=== PATIENT | female | born 1990 | race Caucasian/White ===

== ENCOUNTER 2017-01-29 17:26 | Emergency (ER) | payer OTHER ==
--- NOTE | 2017-01-29 17:56 | ED Physician Documentation ---
PD HPI UPPER EXT INJURY - Stated complaint Stated Complaint: L HAND INJ - Chief complaint Chief Complaint: Ext Problem - History obtained from History obtained from: Patient - History of Present Illness Location: Left Type of injury: Other (states hit her hand on a ceiling fan.) Where injury occurred: Home Timing - onset: How many hours ago (1) Timing - details: Abrupt onset Pain level max: 7 Pain level now: 5 Improved by: Rest, Ice Worsened by: Moving, Palpating Associated symptoms: Swelling. No: Weakness, Numbness, Tingling Contributing factors: No: Anticoagulated, Prior ortho surgery Recently seen: Not recently seen (states hit L hand on ceiling fan while putting on her jacket. pt is right handed) Review of Systems : denies: Now EGA Neurologic: denies: Focal weakness, Numbness PD PAST MEDICAL HISTORY - Past Medical History Past Medical History: Yes Neuro: Headache/migraine - Past Surgical History Past Surgical History: Yes General: Appendectomy - Present Medications Home Medications: Ambulatory Orders Medication Instructions Recorded Confirmed Topiramate [Topamax] 15 mg PO BID 01/29/17 01/29/17 - Allergies Allergies/Adverse Reactions: Allergies Allergy/AdvReac Type Severity Reaction Status Date / Time No Known Drug Allergies Allergy Verified 12/28/13 21:05 - Social History Does the pt smoke?: Yes Smoking Status: Current every day smoker Does the pt drink ETOH?: Yes Does the pt have substance abuse?: No - Immunizations Immunizations are current?: Yes PD ED PE NORMAL - Vitals Vital signs reviewed: Yes - General General: Alert and oriented X 3, No acute distress - Extremities Extremities: Other (L hand - mild TTP over the L 2nd MC distal aspect. mild swelling. NVI. FROM.) - Neuro Neuro: Alert and oriented X 3 - Psych Psych: Normal mood, Normal affect Results - Vitals Vitals: Vital Signs - 24 hr 01/29/17 01/29/17 17:31 18:24 Temperature 37.2 C 37.1 C Heart Rate 85 73 Respiratory 18 Rate Blood Pressure 119/77 114/70 O2 Saturation 100 Oxygen O2 Source Room air - Rads (name of study) L hand xray Radiology: Prelim report reviewed, EMP read contemporaneously, See rad report ( normal) PD MEDICAL DECISION MAKING - ED course Complexity details: reviewed results, re-evaluated patient, considered differential, d/w patient ED course: Patient is a 26-year-old female presents to the emergency department with left hand pain after accidentally hitting it on a ceiling fan. No acute findings on x-ray. Full range of motion. Neurovascularly intact. Placed in a Velcro splint for comfort. Will utilize Motrin and Tylenol as needed for pain at home. Patient is right-handed. Patient counseled regarding signs and symptoms for which I believe and urgent re-evaluation would be necessary. Patient with good understanding of and agreement to plan and is comfortable going home at this time This document was made in part using voice recognition software. While efforts are made to proofread this document, sound alike and grammatical errors may occur. Departure - Departure Disposition: 01 Home, Self Care Clinical Impression: Contusion, hand Qualifiers: Encounter type: initial encounter Laterality: left Qualified Code(s): S60.222A - Contusion of left hand, initial encounter Condition: Good Instructions: ED Contusion Hand Follow-Up: Medardo York MD [Primary Care Provider] - Within 1 week Comments: You can use motrin or tylenol as needed for pain. Return if you worsen. Your xrays are normal. Discharge Date/Time: 01/29/17 18:24
--- NOTE | 2017-01-29 18:04 | XRAY Preliminary Report ---
Exam: XR HAND 3 VIEW LT IMPRESSION: Normal hand radiography. [facility] SITE ID: [id number]
--- NOTE | 2017-01-29 18:06 | XRAY Report ---
EXAM: LEFT HAND RADIOGRAPHY EXAM DATE: 01/29/2017 05:36 PM. CLINICAL HISTORY: Injury. Caught hand in ceiling fan. COMPARISON: None. TECHNIQUE: 3 views. FINDINGS: Bones: Normal. No fractures or bone lesions. Joints: Normal. No subluxations. Soft Tissues: Normal. No soft tissue swelling. IMPRESSION: Normal hand radiography. [facility] Referring Provider Line: [phone] SITE ID: [id number]
[2017-01-29 18:24] VITALS: BP 114/70
== END 2017-01-29 18:24 | disposition home or self-care (01) ==
LOC: ED 17:26
DX: S60.222A Contusion of left hand, initial encounter (principal); W22.8XXA Striking against or struck by other objects, initial encounter; Y92.019 Unspecified place in single-family (private) house as the place of occurrence of the external cause; F17.200 Nicotine dependence, unspecified, uncomplicated
CPT/HCPCS: 99283

== ENCOUNTER 2017-04-09 15:08 | Emergency (ER) | payer OTHER ==
[2017-04-09] MEDS ORDERED: IBUPROFEN 400 MG TABLET PO STA (17:16)
[2017-04-09] MEDS ORDERED: BENZONATATE 100 MG CAPSULE PO STA (17:16)
[2017-04-09] MEDS ORDERED: guaiFENesin/DEXTROMETHORPHAN 10 ML UDC PO STA (17:16)
[2017-04-09 17:27] VITALS: BP 114/72
--- NOTE | 2017-04-09 17:49 | ED Physician Documentation ---
History of Present Illness - Stated complaint Stated Complaint: SORE THROAT,NECK PAIN - Chief complaint Chief Complaint: Resp - Additonal information Additional information: hx from pt 27 f flu like sx - fever body aches cough sore throat diarrhea no sig pmhx and not Review of Systems Constitutional: reports: Fever, Chills, Myalgias Throat: reports: Sore throat Respiratory: reports: Cough GI: reports: Diarrhea. denies: Abdominal Pain : denies: Now EGA (denies) Endocrine: denies: Easy bruising / bleeding Immunocompromised: denies: Immunocompromised PD PAST MEDICAL HISTORY - Past Medical History Past Medical History: Yes Neuro: Headache/migraine - Past Surgical History Past Surgical History: Yes General: Appendectomy - Present Medications Home Medications: Ambulatory Orders Medication Instructions Recorded Confirmed Topiramate [Topamax] 15 mg PO BID 01/29/17 01/29/17 Benzonatate [Tessalon] 100 mg PO TID PRN #20 capsule 04/09/17 Fluticasone [Flonase] 1 sprays EDELMIRA BID PRN #1 bottle 04/09/17 Loperamide [Imodium] 2 mg PO ONCE PRN #10 capsule 04/09/17 guaiFENesin/DEXTROMETHORPHAN 10 ml PO Q6H PRN #120 ml 04/09/17 [Robitussin Dm] - Allergies Allergies/Adverse Reactions: Allergies Allergy/AdvReac Type Severity Reaction Status Date / Time No Known Drug Allergies Allergy Verified 12/28/13 21:05 - Social History Does the pt smoke?: No Smoking Status: Never smoker Does the pt drink ETOH?: Yes Does the pt have substance abuse?: No - Immunizations Immunizations are current?: Yes PD ED PE NORMAL - Vitals Vital signs reviewed: Yes - HEENT HEENT: Atraumatic, Moist mucous membranes. No: Pharynx benign (+ erythema no exudate) - Cardiac Cardiac: RRR - Respiratory Respiratory: No respiratory distress, Clear bilaterally - Abdomen Abdomen: Soft, Non tender - Derm Derm: Normal color - Neuro Neuro: Alert and oriented X 3 Results - Vitals Vitals: Vital Signs - 24 hr 04/09/17 04/09/17 15:17 17:26 Temperature 37.2 C 37.2 C Heart Rate 96 73 Respiratory 18 18 Rate Blood Pressure 120/72 114/72 O2 Saturation 99 99 Oxygen O2 Source Room air - Labs Labs: Laboratory Tests 04/09/17 15:55 Group A Strep Rapid Negative PD MEDICAL DECISION MAKING - ED course ED course: strep neg sx c/w influenza discussed side effects vs benefits of tamiflu with pt and she declines will rx symptomatic meds Departure - Departure Disposition: Home, Self Care Clinical Impression: Influenza Condition: Good Instructions: ED Flu Follow-Up: Medardo York MD [Primary Care Provider] - Prescriptions: Benzonatate [Tessalon] 100 mg PO TID PRN #20 capsule PRN Reason: to ease cough Fluticasone [Flonase] 1 sprays EDELMIRA BID PRN #1 bottle PRN Reason: congestion guaiFENesin/DEXTROMETHORPHAN [Robitussin Dm] 10 ml PO Q6H PRN #120 ml PRN Reason: Cough Loperamide [Imodium] 2 mg PO ONCE PRN #10 capsule PRN Reason: Diarrhea Comments: The rapid strep test was negative Your symptoms are consistent with the flu We discussed tamiflu but decided the side effects were not worth the limited benefit But I did prescribe medication to he ease your symptoms and a note for work You can also take motrin and tylenol as needed for fever and body aches Forms: Activity restrictions
== END 2017-04-09 18:03 | disposition home or self-care (01) ==
LOC: ED 15:08
DX: J11.1 Influenza due to unidentified influenza virus with other respiratory manifestations (principal)
CPT/HCPCS: 87070; 87430; 99283; A9270

== ENCOUNTER 2017-05-22 07:47 | Emergency (ER) | payer OTHER ==
[2017-05-22 07:52] VITALS: BP 121/88
--- NOTE | 2017-05-22 08:13 | ED Physician Documentation ---
History of Present Illness - Stated complaint Stated Complaint: N/V/D - Chief complaint Chief Complaint: Abd Pain - Additonal information Additional information: hx from pt 27 f [place] to ER with 2 hr of NVD bit of a cough after vomiting knee sore from kneeling to vomit no bad food no travel no contacts with same Review of Systems Constitutional: denies: Fever GI: reports: Nausea, Vomiting, Diarrhea : denies: Now EGA (denies) Endocrine: denies: Easy bruising / bleeding Immunocompromised: denies: Immunocompromised PD PAST MEDICAL HISTORY - Past Medical History Past Medical History: Yes Neuro: Headache/migraine - Past Surgical History Past Surgical History: Yes General: Appendectomy - Present Medications Home Medications: Ambulatory Orders Medication Instructions Recorded Confirmed Topiramate [Topamax] 15 mg PO BID 01/29/17 01/29/17 Loperamide [Imodium] 2 mg PO ONCE PRN #10 capsule 05/22/17 Methocarbamol 0 mg PO BID 05/22/17 05/22/17 Ondansetron Odt [Zofran] 4 mg TL Q6H PRN #10 tablet 05/22/17 - Allergies Allergies/Adverse Reactions: Allergies Allergy/AdvReac Type Severity Reaction Status Date / Time No Known Drug Allergies Allergy Verified 05/22/17 07:52 - Social History Does the pt smoke?: No Smoking Status: Never smoker Does the pt drink ETOH?: Yes Does the pt have substance abuse?: No - Immunizations Immunizations are current?: Yes PD ED PE NORMAL - Vitals Vital signs reviewed: Yes - Cardiac Cardiac: RRR - Respiratory Respiratory: No respiratory distress, Clear bilaterally - Abdomen Abdomen: Non tender - Derm Derm: Normal color Results - Vitals Vitals: Vital Signs - 24 hr 05/22/17 07:51 Temperature 36.5 C Heart Rate 93 Respiratory 16 Rate Blood Pressure 121/88 H O2 Saturation 100 Oxygen O2 Source Room air Departure - Departure Disposition: 01 Home, Self Care Clinical Impression: Gastroenteritis Condition: Good Instructions: ED Gastroenteritis Viral Follow-Up: Medardo York MD [Primary Care Provider] - Prescriptions: Loperamide [Imodium] 2 mg PO ONCE PRN #10 capsule PRN Reason: Diarrhea Ondansetron Odt [Zofran] 4 mg TL Q6H PRN #10 tablet PRN Reason: Nausea / Vomiting Forms: Activity restrictions
[2017-05-22] MEDS ORDERED: ONDANSETRON ODT 4 MG TABLET TL STA ×2 (08:25→08:27)
[2017-05-22] MEDS ORDERED: LOPERAMIDE 2 MG CAPSULE PO STA ×2 (08:25→08:27)
== END 2017-05-22 08:37 | disposition home or self-care (01) ==
LOC: ED 07:47
DX: K52.9 Noninfective gastroenteritis and colitis, unspecified (principal)
CPT/HCPCS: 99283; A9270; Q0162

== ENCOUNTER 2017-07-01 08:35 | Outpatient (CLI) | payer OTHER ==
[2017-07-01] MEDS ORDERED: GADOBUTROL 7.5 MMOL/7.5 ML VIAL ONE (08:56)
[2017-07-01] MEDS ORDERED: GADOBUTROL 7.5 MMOL/7.5 ML VIAL IVP ONE (09:39)
--- NOTE | 2017-07-01 17:32 | MRI Report ---
EXAM: MRI BRAIN WITHOUT AND WITH CONTRAST EXAM DATE: 07/01/2017 09:50 AM. CLINICAL HISTORY: 27-year-old with history of migraines that occur 2-3 times a week. Evaluate for int racranial pathology. COMPARISON: None. TECHNIQUE: Multiplanar, multisequence T1-weighted and fluid-sensitive MR sequences of the brain were performed. Sequences optimized for routine evaluation. Other: None. IV Contrast: 7.5 cc GADAVIST. FINDINGS: Brain Volume: Normal for age. Parenchyma: No acute parenchymal hemorrhage, mass, or midline shift. There is a area of T2/FLAIR sign al hyperintensity seen extending from the cortical mantle to the frontal horn of the right lateral ve ntricle suspicious for potential radial band (series 701, image 14; series 901, image 6). There is qu estionable abnormal cortical thickening of a near the region of linear T2 signal hyperintensity (seri es 1002, image 49). No other areas of abnormal T2/FLAIR signal hyperintensity seen. No areas of restr icted diffusion seen to suggest acute infarct. No abnormal postcontrast enhancement. Ventricles/Cisterns: No hydrocephalus. No abnormal extra-axial fluid collection or hemorrhage. Orbits: Symmetric and unremarkable. Sella Turcica: The pituitary gland, cavernous sinuses, suprasellar cistern and optic chiasm are unrem arkable. IAC: Symmetric and unremarkable. Vasculature: Normal signal flow void is seen in the major arterial structures at the skull base. The dural sinuses are patent and enhance normally. Sinuses: Mild mucosal thickening of the maxillary sinuses and ethmoid air cells. Mastoid air cells an d middle ear cavities are clear. Bones: No focal pathologic appearing marrow signal changes. Other: None. IMPRESSION: 1. No acute infarct, intracranial hemorrhage, mass, hydrocephalus, midline shift, or abnormal postcon trast enhancement. 2. Linear area of T2/FLAIR signal hyperintensity extending from cortical mantle of the lateral right frontal lobe to the frontal horn of the right lateral ventricle suspicious for potential radial band. There is questionable abnormal cortical thickening of a near the region of linear T2 signal hyperin tensity (series 1002, image 49). This could potentially represent focal cortical heterotopia or possi ble polymicrogyria. Consider repeat examination with dedicated seizure protocol for further evaluatio n. [facility] Referring Provider Line: [phone] SITE ID: [id number]
== END 2017-07-01 08:36 | disposition home or self-care (01) ==
LOC: DI 08:35
PROVIDERS: ATTEND General Practice
DX: G43.909 Migraine, unspecified, not intractable, without status migrainosus (principal)
CPT/HCPCS: 70553; A9585